=== PATIENT | female | born 2000 | race African-American/Black ===

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

== ENCOUNTER 2020-04-19 14:17 | Emergency (ER) | payer MEDICAID ==
[~2020-04-19] VITALS: Ht 157.5 cm; Wt 69.0 kg
[2020-04-19] MEDS ORDERED: MAGNESIUM/ALUMINUM HYDROXIDE/SIMETHICONE 30ML UDC PO NR (15:00)
[2020-04-19 15:11] VITALS: BP 138/76
== END 2020-04-19 15:14 | disposition home or self-care (01) ==
LOC: ER 14:17
DX: K21.9 Gastro-esophageal reflux disease without esophagitis (principal); R03.0 Elevated blood-pressure reading, without diagnosis of hypertension
CPT/HCPCS: 99282

== ENCOUNTER 2021-03-24 23:58 | Emergency (ER) | payer MEDICAID, OTHER ==
[~2021-03-24] VITALS: Ht 160 cm; Wt 82.6 kg
[2021-03-25 01:45] VITALS: BP 130/75
== END 2021-03-25 02:07 | disposition home or self-care (01) ==
LOC: ER 23:58
DX: R55 Syncope and collapse (principal); E16.2 Hypoglycemia, unspecified; R00.0 Tachycardia, unspecified; D50.9 Iron deficiency anemia, unspecified; J45.909 Unspecified asthma, uncomplicated
CPT/HCPCS: 82962; 93005; 99283

== ENCOUNTER 2021-03-28 09:46 | Emergency (ER) | payer MEDICAID ==
[~2021-03-28] VITALS: Ht 160 cm; Wt 73.0 kg
[2021-03-28 09:50] VITALS: BP 134/72
[2021-03-28 12:41] LABS: BASOPHILS % 0.6 % (0.0-2.0); HEMATOCRIT. 36.1 % (36.0-48.0); HEMOGLOBIN. 11.6 g/dL (12.0-16.0); LYMPHOCYTES % 29.3 % (20.0-50.0); MEAN CORPUSCULAR HEMOGLOBIN 24.9 pg (28.0-32.0); MEAN CORPUSCULAR VOLUME 77.1 fL (81.0-99.0); MEAN PLATELET VOLUME 8.3 fl (7.4-10.4); MONOCYTES % 7.2 % (2.0-8.0); NEUTROPHILS % 61.9 % (40.0-76.0); PLATELET 469 x1000/uL (130-400); RED BLOOD CELL COUNT 4.68 mill/uL (4.2-5.4)
[2021-03-28 12:50] LABS: CHLORIDE 108 mEq/L (98-107)
[2021-03-28 13:02] LABS: HCG SCREEN NEGATIVE
[2021-03-28 14:02] LABS: CLARITY URINE CLEAR (CLEAR); COLOR URINE RED (YELLOW); KETONES URINE NEGATIVE (NEGATIVE); LEUKOCYTE ESTERASE URINE TRACE (NEGATIVE); NITRITE URINE NEGATIVE (NEGATIVE); OCCULT BLOOD URINE 3+ (NEGATIVE); PH URINE 6.5 (4.5-8.0); PROTEIN URINE TRACE (NEGATIVE); SPECIFIC GRAVITY URINE 1.008 (1.005-1.030); UROBILINOGEN URINE 0.2 E.U./dL (0.2-1.0)
[2021-03-28 14:20] LABS: *AMPHETAMINES SCREEN URINE NEGATIVE (NEGATIVE); *BARBITURATES SCREEN URINE NEGATIVE (NEGATIVE); *BENZODIAZEPINES SCREEN URINE NEGATIVE (NEGATIVE); *COCAINE SCREEN URINE NEGATIVE (NEGATIVE)
[2021-03-28 14:21] LABS: CANNABINOID URINE SCREEN NEGATIVE (NEGATIVE); METHADONE URINE SCREEN NEGATIVE (NEGATIVE); OPIATES URINE SCREEN NEGATIVE (NEGATIVE); PHENCYCLIDINE URINE SCREEN NEGATIVE (NEGATIVE)
[2021-03-28] MEDS ORDERED: ONDANSETRON 4MG ODT PO ONE (16:30)
[2021-03-28] MEDS ORDERED: NITR-87 MT (16:57)
[2021-03-28] MEDS ORDERED: ONDA4TAB11 PO (16:57)
[2021-03-28] MEDS ORDERED: OMEP10CA5 MT (16:57)
== END 2021-03-28 17:27 | disposition home or self-care (01) ==
LOC: ER 09:46
DX: R42 Dizziness and giddiness (principal); R11.0 Nausea; N39.0 Urinary tract infection, site not specified; R25.1 Tremor, unspecified
CPT/HCPCS: 36415; 71045; 80053; 80305; 81003; 81025; 82962; 84703; 85025; 93005; 99285

== ENCOUNTER 2021-04-04 08:28 | Emergency (ER) | payer MEDICAID ==
[~2021-04-04] VITALS: Ht 160 cm; Wt 71.0 kg
[~2021-04-04 08:28] MED LIST changes: +NITR-87 MT; +OMEP10CA5 MT; +ONDA4TAB11 PO
[2021-04-04 08:36] VITALS: BP 135/82
[2021-04-04] MEDS ORDERED: TOPUD PO (08:39)
[2021-04-04] MEDS ORDERED: ACETAMINOPHEN 325MG TABLET PO NR (08:55)
[2021-04-04] MEDS ORDERED: DIPHENHYDRAMINE 25MG CAPSULE PO NR (09:00)
[2021-04-04] MEDS ORDERED: METOCLOPRAMIDE HCL 10MG TABLET PO NR (09:00)
[2021-04-04] MEDS ORDERED: SODIUM CHLORIDE 0.9% 1,000 ML IV ONE (09:00)
[2021-04-04 09:38] LABS: BASOPHILS % 0.6 % (0.0-2.0); EOSINOPHILS % 1.7 % (0.0-5.0); HEMATOCRIT. 39.2 % (36.0-48.0); HEMOGLOBIN. 12.6 g/dL (12.0-16.0); LYMPHOCYTES % 34.8 % (20.0-50.0); MEAN CORPUSCULAR VOLUME 77.9 fL (81.0-99.0); MEAN PLATELET VOLUME 8.7 fl (7.4-10.4); MONOCYTES % 5.8 % (2.0-8.0); NEUTROPHILS % 57.1 % (40.0-76.0); PLATELET 460 x1000/uL (130-400); RED BLOOD CELL COUNT 5.04 mill/uL (4.2-5.4); RED CELL DISTRIBUTION WIDTH 16.1 % (11.6-14.6)
[2021-04-04 09:43] LABS: CHLORIDE 105 mEq/L (98-107)
[2021-04-04 09:44] LABS: HCG SCREEN NEGATIVE
[2021-04-04 09:48] LABS: *AMPHETAMINES SCREEN URINE NEGATIVE (NEGATIVE); *BARBITURATES SCREEN URINE NEGATIVE (NEGATIVE); *BENZODIAZEPINES SCREEN URINE NEGATIVE (NEGATIVE)
[2021-04-04 09:49] LABS: CLARITY URINE CLOUDY (CLEAR); COLOR URINE YELLOW (YELLOW); KETONES URINE 1+ (NEGATIVE); LEUKOCYTE ESTERASE URINE 3+ (NEGATIVE); NITRITE URINE NEGATIVE (NEGATIVE); OCCULT BLOOD URINE NEGATIVE (NEGATIVE); PROTEIN URINE NEGATIVE (NEGATIVE); SPECIFIC GRAVITY URINE 1.016 (1.005-1.030)
[2021-04-04 09:50] LABS: *COCAINE SCREEN URINE NEGATIVE (NEGATIVE); CANNABINOID URINE SCREEN NEGATIVE (NEGATIVE); METHADONE URINE SCREEN NEGATIVE (NEGATIVE); OPIATES URINE SCREEN NEGATIVE (NEGATIVE); PHENCYCLIDINE URINE SCREEN NEGATIVE (NEGATIVE)
[2021-04-04] MEDS ORDERED: ACET-2708 MT (10:16)
[2021-04-04] MEDS ORDERED: METO-293 MT (10:16)
== END 2021-04-04 11:08 | disposition home or self-care (01) ==
LOC: ER 08:28
DX: G44.209 Tension-type headache, unspecified, not intractable (principal); R42 Dizziness and giddiness; N39.0 Urinary tract infection, site not specified; J45.909 Unspecified asthma, uncomplicated; E86.0 Dehydration; Z79.899 Other long term (current) drug therapy
CPT/HCPCS: 36415; 80053; 80305; 81003; 81025; 82962; 84703; 85025; 93005; 96360; 96361; 99284; J8597; Q0163

== ENCOUNTER 2023-03-19 20:46 | Emergency (ER) | payer MEDICAID, OTHER ==
[~2023-03-19] VITALS: Ht 160 cm; Wt 77.0 kg
[~2023-03-19 20:46] MED LIST changes: +ACET-2708 MT; +METO-293 MT; +TOPUD PO
[2023-03-19 21:17] VITALS: O2SAT 96
[2023-03-19 21:44] LABS: BASOPHILS % 0.4 % (0.0-2.0); DIFFERENTIAL COMMENT 0; EOSINOPHILS % 5.9 % (0.0-5.0); HEMATOCRIT. 37.1 % (36.0-48.0); HEMOGLOBIN. 11.5 g/dL (12.0-16.0); LYMPHOCYTES % 16.6 % (20.0-50.0); MEAN CORPUSCULAR HEMOGLOBIN 23.3 pg (28.0-32.0); MEAN CORPUSCULAR HGB CONC 31.1 g/dL (31.0-37.0); MEAN CORPUSCULAR VOLUME 74.8 fL (81.0-99.0); MEAN PLATELET VOLUME 8.4 fl (7.4-10.4); MONOCYTES % 6.4 % (2.0-8.0); NEUTROPHILS % 70.7 % (40.0-76.0); PLATELET 473 x1000/uL (130-400); RED BLOOD CELL COUNT 4.96 mill/uL (4.2-5.4); RED CELL DISTRIBUTION WIDTH 17.3 % (11.6-14.6); WHITE BLOOD COUNT 8.9 x1000/uL (4.5-11.0)
[2023-03-19 21:54] LABS: PARTIAL THROMBOPLASTIN TIME 33.1 sec (23.4-31.0); PROTHROMBIN TIME 10.5 sec (9.6-11.0)
[2023-03-19 21:58] LABS: CLARITY URINE CLOUDY (CLEAR); COLOR URINE YELLOW (YELLOW); GLUCOSE URINE NEGATIVE (NEGATIVE); KETONES URINE NEGATIVE (NEGATIVE); OCCULT BLOOD URINE NEGATIVE (NEGATIVE); PH URINE 5.5 (4.5-8.0); PROTEIN URINE NEGATIVE (NEGATIVE); SPECIFIC GRAVITY URINE 1.016 (1.005-1.030)
[2023-03-19 21:59] LABS: LEUKOCYTE ESTERASE URINE 3+ (NEGATIVE); NITRITE URINE NEGATIVE (NEGATIVE); UROBILINOGEN URINE 0.2 E.U./dL (0.2-1.0)
[2023-03-19 22:00] LABS: ALANINE AMINOTRANSFERASE 11 IU/L (10-49); ALBUMIN 4.5 g/dL (3.2-4.8); ASPARTATE AMINOTRANSFERASE 17 IU/L (<34); BILIRUBIN TOTAL 0.2 mg/dL (0.1-1.0); CALCIUM 9.4 mg/dL (8.7-10.4); CARBON DIOXIDE 25 mEq/L (21-32); CHLORIDE 104 mEq/L (98-107); CREATININE 0.7 mg/dL (0.6-1.0); GLUCOSE 90 mg/dL (70-105); POTASSIUM 3.7 mEq/L (3.5-5.1); PROTEIN TOTAL 8.4 g/dL (6.0-8.3); SODIUM 139 mEq/L (136-145); TROPONIN I HIGH SENSITIVITY 5 ng/L (3.0-34); UREA NITROGEN BLOOD 11 mg/dL (9-23)
[2023-03-19] MEDS ORDERED: ALBUTEROL (0.083%) 2.5MG/3ML NEB HHN STA (22:44)
[2023-03-19] MEDS ORDERED: PREDNISONE 20MG TABLET PO STA (22:44)
[2023-03-19] MEDS ORDERED: IPRATROPIUM BROMIDE (0.02%) 0.5MG/2.5ML NEB HHN STA (22:44)
[2023-03-19 22:49] LABS: BACTERIA URINE 2+; RBC URINE 0-2 /hpf (0-2); SQUAMOUS EPITHELIAL CELL URINE 3+ /lpf (RARE/1+); WBC URINE 15-25 /hpf (0-2)
[2023-03-19 23:35] VITALS: PULSE 133; RESP 20
[2023-03-20] MEDS ORDERED: ALBU2.5V13 NEB (00:49)
[2023-03-20] MEDS ORDERED: ALBU18HF2 IH (00:49)
[2023-03-20] MEDS ORDERED: P20 MT (00:49)
[2023-03-20 01:10] VITALS: BP 137/72; PULSE 120; RESP 17; TEMP 99.4
== END 2023-03-20 01:15 | disposition home or self-care (01) ==
LOC: ER 20:46
DX: J45.901 Unspecified asthma with (acute) exacerbation (principal); Z76.0 Encounter for issue of repeat prescription; Z20.822 Contact with and (suspected) exposure to COVID-19
CPT/HCPCS: 80053; 81003; 81025; 85025; 85610; 85730; 87086; 84484; 36415; 71045; 94640; 93005; 99285; 87804 ×2; 87426; Z7610 ×3; C9803

== ENCOUNTER 2024-01-28 11:10 | Emergency (ER) | payer SELFPAY ==
[~2024-01-28] VITALS: Ht 160 cm; Wt 81.6 kg
[~2024-01-28 11:10] MED LIST changes: +ALBU2.5V13 NEB; +ONDA-239 PO; -ONDA4TAB11 PO; +P20 MT
[2024-01-28 11:12] VITALS: O2SAT 100
[2024-01-28 11:25] VITALS: BP 139/68; PULSE 93; RESP 16; TEMP 98.2; O2SAT 98
[2024-01-28 11:45] LABS: BASOPHILS % 0.7 % (0.0-2.0); DIFFERENTIAL COMMENT 0; EOSINOPHILS % 1.2 % (0.0-5.0); HEMATOCRIT. 34.9 % (36.0-48.0); HEMOGLOBIN. 10.7 g/dL (12.0-16.0); LYMPHOCYTES % 37.9 % (20.0-50.0); MEAN CORPUSCULAR HEMOGLOBIN 22.1 pg (28.0-32.0); MEAN CORPUSCULAR HGB CONC 30.7 g/dL (31.0-37.0); MEAN CORPUSCULAR VOLUME 72.2 fL (81.0-99.0); MONOCYTES % 5.6 % (2.0-8.0); NEUTROPHILS % 54.6 % (40.0-76.0); PLATELET 505 x1000/uL (130-400); RED BLOOD CELL COUNT 4.84 mill/uL (4.2-5.4); RED CELL DISTRIBUTION WIDTH 16.6 % (11.6-14.6); WHITE BLOOD COUNT 6.2 x1000/uL (4.5-11.0)
[2024-01-28 11:57] LABS: CHLORIDE 104 mEq/L (98-107); POTASSIUM 3.4 mEq/L (3.5-5.1); SODIUM 138 mEq/L (136-145)
[2024-01-28 11:58] LABS: CALCIUM 9.7 mg/dL (8.7-10.4); CARBON DIOXIDE 26 mEq/L (21-32)
[2024-01-28 12:03] LABS: CREATININE 0.8 mg/dL (0.6-1.0); GLUCOSE 87 mg/dL (70-105); UREA NITROGEN BLOOD 10 mg/dL (9-23)
[2024-01-28 13:04] LABS: TROPONIN I HIGH SENSITIVITY 5 ng/L (3.0-34)
[2024-01-28] MEDS ORDERED: POTA-354 PO (13:34)
== END 2024-01-28 13:58 | disposition left against medical advice (07) ==
LOC: ER 11:19
DX: R00.2 Palpitations (principal); R42 Dizziness and giddiness; J45.909 Unspecified asthma, uncomplicated; Z79.899 Other long term (current) drug therapy
CPT/HCPCS: 36415; 80048; 84484; 85025; 85379; 93005; 99284

== ENCOUNTER 2024-09-06 16:04 | Emergency (ER) | payer OTHER ==
[~2024-09-06] VITALS: Ht 160 cm; Wt 78.0 kg
[~2024-09-06 16:04] MED LIST changes: +POTA-354 PO
[2024-09-06 16:19] VITALS: O2SAT 99
[2024-09-06 20:21] VITALS: BP 128/72; PULSE 98; RESP 18; TEMP 36.7; O2SAT 99
== END 2024-09-06 20:25 | disposition home or self-care (01) ==
LOC: ER 16:04
DX: S90.121A Contusion of right lesser toe(s) without damage to nail, initial encounter (principal); J45.909 Unspecified asthma, uncomplicated; Z79.899 Other long term (current) drug therapy; X58.XXXA Exposure to other specified factors, initial encounter; Y93.89 Activity, other specified; Y92.89 Other specified places as the place of occurrence of the external cause; Y99.8 Other external cause status
CPT/HCPCS: 73660; 99283

== ENCOUNTER 2024-11-28 16:29 | Emergency (ER) | payer MEDICAID ==
[~2024-11-28] VITALS: Ht 165.1 cm; Wt 81.6 kg
[2024-11-28 16:33] VITALS: O2SAT 98
[2024-11-28] MEDS ORDERED: PENI500T MT (19:40)
[2024-11-28] MEDS ORDERED: METH4TAB95 MT (19:40)
[2024-11-28 20:07] VITALS: BP 130/80; PULSE 102; RESP 15; TEMP 36.7; O2SAT 98
== END 2024-11-28 20:08 | disposition home or self-care (01) ==
LOC: ER 16:29
DX: J02.9 Acute pharyngitis, unspecified (principal); J45.909 Unspecified asthma, uncomplicated; Z79.899 Other long term (current) drug therapy
CPT/HCPCS: 99283